=== PATIENT | female | born 1985 | race American Indian/Alaskan Native ===

== ENCOUNTER 2018-05-24 09:16 | Emergency (ER) | payer SELFPAY ==
--- NOTE | 2018-05-24 10:08 | Emergency Department Report ---
Chief Complaint: Extremity Injury, Upper Stated Complaint: (L) THUMB PAIN Time Seen by Provider: 05/24/18 09:59 - HPI History of Present Illness: Patient is a 33-year-old female is complaining of 3-4 months of left thumb pain. Patient states pain is at the base of the thumb hurts worse with movement. 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 She denies any direct trauma fevers chills nausea vomiting at this time. - ROS Review of Systems: All other systems are reviewed and are negative - Exam Vital Signs: Vital Signs 05/24/18 09:27 Temperature 98.4 F Pulse Rate 84 Respiratory 18 Rate Blood Pressure 144/101 O2 Sat by Pulse 99 Oximetry Physical Exam: Patient's focused physical exam shows that the left thumb has no swelling or erythema. She has full range of motion. MSE screening note: Focused history and physical exam performed. Due to findings the following was ordered: ED Medical Decision Making - Radiology Data Patient has a chronic nagging discomfort in the left base of. Patient referred to orthopedic and is suggested the patient use Motrin [id number] and a thumb spica splint. ED Disposition for MSE Clinical Impression: Tendonitis Disposition: Z- MED SCREENING EXAM-LEFT Is pt being admited?: No Does the pt Need Aspirin: No Condition: Stable Additional Instructions: Please use Motrin [id number] for pain. Also please purchase a thumb spica splint. Referrals: PRIMARY CARE, [Primary Care Provider] - 3-5 Days Time of Disposition: 10:07
== END 2018-05-24 10:18 | disposition left against medical advice (07) ==
LOC: ED 09:16
DX: M77.9 Enthesopathy, unspecified (principal)
CPT/HCPCS: 99282

== ENCOUNTER 2019-06-03 09:36 | Emergency (ER) | payer OTHER ==
[2019-06-03 09:51] VITALS: BP 140/107
--- NOTE | 2019-06-03 11:34 | Emergency Department Report ---
ED Back Pain/Injury HPI - General Chief Complaint: Back Pain/Injury Stated Complaint: FELL/LOWER BACK PAIN Time Seen by Provider: 06/03/19 11:29 Source: patient Limitations: No Limitations - History of Present Illness Initial Comments: This is a 34 year-old female who presents to the emergency room with low back pain and coccyx pain from a fall [place]. Patient states she slipped and fell on concrete landing on her buttock's [place] em[place]. Patient states she followed up with a chiropractor who has been working on her lumbar spine but no change in symptoms. Patient states she can barely sit on her buttocks without excruciating pain radiating to bilateral lower extremity above the knee. She denies numbness or tingling, swelling, bruises, change in urinary or bowel pattern, or weakness. MD Complaint: back pain Onset/Timin -: month(s) Similar Symptoms Previously: No Place: street Radiation: left leg (bilateral) Severity: severe Severity scale (0 -10): 9 Quality: sharp Consistency: constant Worsens With: supine Context: fall Associated Symptoms: denies: numbness, difficulty urinating, incontinence, fever/chills Treatments Prior to Arrival: NSAIDS - Related Data Previous Rx's Medication Instructions Recorded Last Taken Type Azithromycin [Zithromax Z-STU] 250 mg PO DAILY #6 tablet 11/13/14 Unknown Rx Codeine Phosphate/Guaifenesin 10 ml PO Q6HR #1 bottle 11/13/14 Unknown Rx [guaiFENesin-Codeine Syrup] Fluticasone [Flonase] 1 spray NS QDAY #1 bottle 11/13/14 Unknown Rx Ibuprofen [Motrin 800 MG tab] 800 mg PO Q8HR PRN #20 tablet 11/13/14 Unknown Rx Naproxen [Naprosyn] 500 mg PO BID PRN #20 tablet 06/03/19 Unknown Rx methOCARBAMOL [Robaxin TAB] 500 mg PO TID PRN #15 tablet 06/03/19 Unknown Rx Allergies Allergy/AdvReac Type Severity Reaction Status Date / Time No Known Allergies Allergy Verified 05/24/18 09:27 ED Review of Systems ROS: Stated complaint: FELL/LOWER BACK PAIN Other details as noted in HPI Constitutional: denies: chills, fever Respiratory: denies: cough, shortness of breath, wheezing Cardiovascular: denies: chest pain, palpitations Gastrointestinal: denies: abdominal pain, nausea, diarrhea Musculoskeletal: back pain. denies: joint swelling, arthralgia Skin: denies: rash, lesions Neurological: denies: headache, weakness, paresthesias Psychiatric: denies: anxiety, depression ED Past Medical Hx Family history: hypertension ED Back Pain Physical Exam - Exam General: Vital signs noted. No distress. Alert and acting appropriately. Back/Abdomen: Yes Sacroiliac Tenderness, Yes Straight Leg Raise Pain (right lower extremity), No Abdominal Tenderness, No Perithoracic Tenderness, No Perilumbar Tenderness, No Flank Tenderness Neuro: Yes Normal Sensation, Yes Normal DTR's, Yes Normal Gait, No Motor Weakness ED Course Vital Signs 06/03/19 09:41 Temperature 98.8 F Pulse Rate 86 Respiratory 16 Rate Blood Pressure 140/107 O2 Sat by Pulse 100 Oximetry Ed Back Pain Tests - Tests Tests: Normal X Rays ED Medical Decision Making - Radiology Data Radiology results: report reviewed SACRUM AND COCCYX 3 VIEWS INDICATION / CLINICAL INFORMATION: Fall with coccygeal pain. COMPARISON: None available. FINDINGS: BONES / JOINT(S): The SI joints and sacral foramina are intact. There is no evidence of fracture or subluxation. SOFT TISSUES: No significant abnormality. ADDITIONAL FINDINGS: None. IMPRESSION: No acute abnormality. - Medical Decision Making This is a 34 y.o. female presents with low back pain radiating to bilateral lower extremity for 1 month. Patient was examined by me. VSS. X-rays obtained of the sacrum and coccyx with no acute findings. Patient will be treated for low back pain with sciatica. Patient informed of results. Start Robaxin and naproxen. Plan discussed with patient to discharge home and treat outpatient. She agrees with ER plan. Given referral for primary care follow-up. Patient discharged home in stable condition. Critical care attestation.: If time is entered above; I have spent that time in minutes in the direct care of this critically ill patient, excluding procedure time. ED Disposition Clinical Impression: Coccyx pain, Strain of fascia of lower back Sciatica Qualifiers: Laterality: bilateral Qualified Code(s): M54.31 - Sciatica, right side Disposition: TO HOME OR SELFCARE Is pt being admited?: No Condition: Stable Instructions: Sciatica (ED), Lumbar Radiculopathy (ED) Additional Instructions: Rest Use ice or heat on affected area for 20 minutes and off for 2 hours. Take pain medication as needed for pain. Don't drive or operate heavy machinery while taking muscle relaxers because they may cause drowsiness. Follow up with Primary Care Provider in 2-3 days. Prescriptions: Naproxen [Naprosyn] 500 mg PO BID PRN #20 tablet PRN Reason: Pain , Severe (7-10) methOCARBAMOL [Robaxin TAB] 500 mg PO TID PRN #15 tablet PRN Reason: Muscle Spasm [facility] - 3-5 Days [facility] [Outside] - 3-5 Days [facility] [Outside] - 3-5 Days NEEMA LIRA MD [Staff Physician] - 3-5 Days MELLISSA RAYA MD [Staff Physician] - 3-5 Days Forms: Work/School Release Form(ED) Time of Disposition: 12:57
--- NOTE | 2019-06-03 12:12 | XRay Report ---
SACRUM AND COCCYX 3 VIEWS INDICATION / CLINICAL INFORMATION: Fall with coccygeal pain. COMPARISON: None available. FINDINGS: BONES / JOINT(S): The SI joints and sacral foramina are intact. There is no evidence of fracture or s ubluxation. SOFT TISSUES: No significant abnormality. ADDITIONAL FINDINGS: None. IMPRESSION: No acute abnormality. Signer Name: Mark Spence MD Signed: 06/03/2019 12:08 PM Workstation Name: [id number]
== END 2019-06-03 13:12 | disposition home or self-care (01) ==
LOC: ED 09:36
DX: S39.012A Strain of muscle, fascia and tendon of lower back, initial encounter (principal); M54.40 Lumbago with sciatica, unspecified side; M53.3 Sacrococcygeal disorders, not elsewhere classified; W01.0XXA Fall on same level from slipping, tripping and stumbling without subsequent striking against object, initial encounter; Y93.89 Activity, other specified; Y92.89 Other specified places as the place of occurrence of the external cause; Y99.8 Other external cause status
CPT/HCPCS: 72220